=== PATIENT | female | born 1950 | race Caucasian/White ===

== ENCOUNTER 2017-07-15 18:28 | Emergency (ER) | payer OTHER ==
[~2017-07-15] VITALS: Ht 154.9 cm; Wt 76.2 kg
[2017-07-15 18:44] VITALS: Ht 154.9 cm; Wt 76.2 kg
[2017-07-15 19:59] LABS: BASOPHIL % 0.3 % (0-2); PLATELET COUNT 176 x10^3mcL (130-400); RED CELL DISTRIBUTION WIDTH 13.2 % (11.5-14.5)
[2017-07-15 20:03] LABS: CALCIUM 9.3 mg/dL (8.5-10.1); CARBON DIOXIDE 26.9 mmol/L (21-32); CREATININE SERUM 1.1 mg/dL (0.6-1.0); POTASSIUM SERUM 4.4 mmol/L (3.5-5.1)
[2017-07-15 22:43] VITALS: BP 186/87
[2017-07-16] MEDS ORDERED: EXFORGE HCT PO (22:05)
[2017-07-16] MEDS ORDERED: SIMVASTATIN20 M1 PO (22:06)
[2017-07-16] MEDS ORDERED: JANUVIA100 M1 PO (22:06)
[2017-07-16] MEDS ORDERED: NATURAL IRON65 MG PO (22:06)
[2017-07-16] MEDS ORDERED: METFORMIN HCL1000 MG PO (22:07)
[2017-07-16] MEDS ORDERED: GLYBURIDE2.5 MG PO (22:08)
== END 2017-07-15 22:43 | disposition home or self-care (01) ==
LOC: ED 18:28
PROVIDERS: Emergency Medicine
DX: I10 Essential (primary) hypertension (principal); E11.9 Type 2 diabetes mellitus without complications
CPT/HCPCS: 36415; Q0092

== ENCOUNTER 2017-07-16 20:05 | Observation (INO) | payer OTHER ==
[~2017-07-16] VITALS: Ht 157.5 cm; Wt 74.4 kg
[2017-07-16 21:18] LABS: UA SPECIFIC GRAVITY <=1.005 (1.005-1.035); microscopic required? YES; urine erythrocyte 1+ (NEGATIVE)
[2017-07-16 21:21] LABS: BASOPHIL % 0.5 % (0-2); PLATELET COUNT 176 x10^3mcL (130-400); RED CELL DISTRIBUTION WIDTH 13.4 % (11.5-14.5)
[2017-07-16 21:27] LABS: CALCIUM 9.1 mg/dL (8.5-10.1); CARBON DIOXIDE 26.5 mmol/L (21-32); CHLORIDE SERUM 104 mmol/L (98-107); CREATININE SERUM 0.9 mg/dL (0.6-1.0); GFR1 > 60 mL/min; GLUCOSE SERUM 224 mg/dL (74-106); SODIUM SERUM 138 mmol/L (136-145)
[2017-07-16 21:41] LABS: ALBUMIN 3.5 g/dL (3.4-5.0); ALKALINE PHOSPHATASE 44 U/L (46-116); ALT/SGPT 26 U/L (14-59); AST/SGOT 14 U/L (15-37); BILIRUBIN TOTAL 0.28 mg/dL (0.20-1.00); FREE T4 0.98 ng/dL (0.76-1.46)
[2017-07-16] MEDS ORDERED: EXFORGE HCT PO (22:05)
[2017-07-16] MEDS ORDERED: SIMVASTATIN20 M1 PO (22:06)
[2017-07-16] MEDS ORDERED: JANUVIA100 M1 PO (22:06)
[2017-07-16] MEDS ORDERED: NATURAL IRON65 MG PO (22:06)
[2017-07-16] MEDS ORDERED: METFORMIN HCL1000 MG PO (22:07)
[2017-07-16 22:08] LABS: AMPHETAMINE QUAL UR NONE DETECTED (NEG <=1000)
[2017-07-16] MEDS ORDERED: GLYBURIDE2.5 MG PO (22:08)
[2017-07-16 22:30] LABS: MAGNESIUM 1.8 mg/dL (1.8-2.4); PHOSPHOROUS 3.2 mg/dL (2.5-4.9)
[2017-07-16 22:54] VITALS: BP 198/85
[2017-07-17 05:53] VITALS: BP 118/63
[2017-07-17 06:17] LABS: BASOPHIL % 0.9 % (0-2); PLATELET COUNT 180 x10^3mcL (130-400)
[2017-07-17 06:36] LABS: CALCIUM 8.7 mg/dL (8.5-10.1); CARBON DIOXIDE 26.5 mmol/L (21-32); CREATININE SERUM 1.1 mg/dL (0.6-1.0)
[2017-07-17 09:00] VITALS: BP 149/84
[2017-07-17 12:38] VITALS: BP 133/72
[2017-07-17] MEDS ORDERED: NIT0.4 SL (17:22)
[2017-07-17] MEDS ORDERED: ECO81 PO (17:23)
[2017-07-17] MEDS ORDERED: HYD25 PO (17:24)
[2017-07-17 18:02] VITALS: BP 133/72
== END 2017-07-17 19:30 | disposition home or self-care (01) | DRG 391 ==
LOC: ED 20:05 → DU 21:36
PROVIDERS: Emergency Medicine; Family Medicine
DX: K21.9 Gastro-esophageal reflux disease without esophagitis (principal); N17.0 Acute kidney failure with tubular necrosis; K86.1 Other chronic pancreatitis; I16.0 Hypertensive urgency; E11.65 Type 2 diabetes mellitus with hyperglycemia; E11.51 Type 2 diabetes mellitus with diabetic peripheral angiopathy without gangrene; E11.21 Type 2 diabetes mellitus with diabetic nephropathy; R31.9 Hematuria, unspecified; D63.8 Anemia in other chronic diseases classified elsewhere; Z91.14 Patient's other noncompliance with medication regimen; Z79.84 Long term (current) use of oral hypoglycemic drugs; Z68.30 Body mass index [BMI] 30.0-30.9, adult
CPT/HCPCS: 82962; 83880; 84439; G0378; J0360; J1815; Q0092

== ENCOUNTER 2017-07-19 19:15 | Emergency (ER) | payer OTHER ==
[~2017-07-19] VITALS: Ht 157.5 cm; Wt 75.3 kg
[~2017-07-19 19:15] MED LIST: ECO81 PO; EXFORGE HCT PO; GLYBURIDE2.5 MG PO; HYD25 PO; JANUVIA100 M1 PO; METFORMIN HCL1000 MG PO; NATURAL IRON65 MG PO; NIT0.4 SL; SIMVASTATIN20 M1 PO
[2017-07-19 19:21] VITALS: Ht 157.5 cm; Wt 75.3 kg
[2017-07-19] MEDS ORDERED: AMLODIPINE BESY PO (19:47)
[2017-07-19] MEDS ORDERED: JANUMET 50-1,01 EACH PO (19:47)
[2017-07-19] MEDS ORDERED: LORAZEPAM0.5 MG PO (19:47)
[2017-07-19 21:03] LABS: CALCIUM 9.5 mg/dL (8.5-10.1); CARBON DIOXIDE 27.7 mmol/L (21-32); CHLORIDE SERUM 106 mmol/L (98-107); CREATININE SERUM 0.9 mg/dL (0.6-1.0); GFR1 > 60 mL/min; GLUCOSE SERUM 126 mg/dL (74-106); POTASSIUM SERUM 4.1 mmol/L (3.5-5.1); SODIUM SERUM 146 mmol/L (136-145)
[2017-07-19 21:54] VITALS: BP 158/79
== END 2017-07-19 21:54 | disposition home or self-care (01) ==
LOC: ED 19:15
PROVIDERS: Emergency Medicine
DX: I67.4 Hypertensive encephalopathy (principal); E11.9 Type 2 diabetes mellitus without complications

== ENCOUNTER 2018-03-11 16:17 | Inpatient (IN) | payer OTHER ==
[~2018-03-11] VITALS: Ht 157.5 cm; Wt 65.4 kg
[~2018-03-11 16:17] MED LIST changes: +AMLODIPINE BESY PO; +JANUMET 50-1,01 EACH PO; +LORAZEPAM0.5 MG PO
[2018-03-11 18:03] LABS: UA SPECIFIC GRAVITY 1.015 (1.005-1.035); microscopic required? YES; urine erythrocyte 1+ (NEGATIVE)
[2018-03-11 18:14] LABS: BASOPHIL % 0.4 % (0-2); PLATELET COUNT 190 x10^3mcL (130-400); RED CELL DISTRIBUTION WIDTH 12.6 % (11.5-14.5)
[2018-03-11 18:26] LABS: CALCIUM 8.7 mg/dL (8.5-10.1); CARBON DIOXIDE 27.1 mmol/L (21-32); CHLORIDE SERUM 102 mmol/L (98-107); CREATININE SERUM 1.2 mg/dL (0.6-1.0); GFR1 48 mL/min; GLUCOSE SERUM 192 mg/dL (74-106); POTASSIUM SERUM 4.5 mmol/L (3.5-5.1); SODIUM SERUM 139 mmol/L (136-145)
[2018-03-11 18:30] LABS: ALBUMIN 3.7 g/dL (3.4-5.0); ALKALINE PHOSPHATASE 50 U/L (46-116); ALT/SGPT 25 U/L (14-59); AST/SGOT 14 U/L (15-37); BILIRUBIN TOTAL 0.39 mg/dL (0.20-1.00); FREE T4 1.04 ng/dL (0.76-1.46); LIPASE 170 IU/L (73-393); TOTAL PROTEIN, SERUM 7.4 g/dL (6.4-8.2)
[2018-03-11] MEDS ORDERED: JANUMET 50-1,01 EACH PO (18:45)
[2018-03-11] MEDS ORDERED: AMLODIPINE BESY PO (18:46)
[2018-03-11] MEDS ORDERED: CARVEDILOL12.5 M1 PO (18:46)
[2018-03-11] MEDS ORDERED: SIMVASTATIN20 M1 PO (18:46)
[2018-03-11 21:58] VITALS: BP 219/91
[2018-03-11 22:52] VITALS: BP 149/70
[2018-03-12] VITALS (7 sets, daily range): BP systolic 147–181; BP diastolic 69–86
[2018-03-12 07:16] LABS: BASOPHIL % 0.3 % (0-2); PLATELET COUNT 179 x10^3mcL (130-400); RED CELL DISTRIBUTION WIDTH 12.2 % (11.5-14.5)
[2018-03-12 07:34] LABS: CALCIUM 8.8 mg/dL (8.5-10.1); CARBON DIOXIDE 27.1 mmol/L (21-32); MAGNESIUM 1.9 mg/dL (1.8-2.4); POTASSIUM SERUM 3.8 mmol/L (3.5-5.1)
[2018-03-12 07:58] LABS: CHOLESTEROL/HDL RATIO 5.5
[2018-03-12] MEDS ORDERED: CARVEDILOL12.5 M1 PO (16:35)
[2018-03-12] MEDS ORDERED: HYDRALAZINE HCL25 MG PO (16:44)
== END 2018-03-12 19:25 | disposition home or self-care (01) | DRG 69 ==
LOC: ED 16:17 → DU 21:12
PROVIDERS: Emergency Medicine; Internal Medicine Pulmonary Disease
DX: G45.9 Transient cerebral ischemic attack, unspecified (principal); I16.0 Hypertensive urgency; E11.9 Type 2 diabetes mellitus without complications; E78.5 Hyperlipidemia, unspecified
CPT/HCPCS: 82962; 83880; 84439; G0480; J1644; J1815; J3490